=== PATIENT | male | born 1965 | race Caucasian/White ===

== ENCOUNTER 2023-10-19 18:11 | Emergency (ER) | payer OTHER ==
[2023-10-19 18:26] VITALS: RESP 20; BMI 20.3
[2023-10-19 20:44] VITALS: BP 118/86; PULSE 85; TEMP 98
== END 2023-10-19 20:44 | disposition home or self-care (01) ==
LOC: JER 18:11
DX: Z00.00 Encounter for general adult medical examination without abnormal findings (principal)
CPT/HCPCS: 93005; 93010; 99283-25